=== PATIENT | female | born 1940 | race Caucasian/White ===

== ENCOUNTER 2018-05-31 18:49 | Emergency (ER) | payer OTHER, SELFPAY ==
[2018-05-31 18:57] VITALS: BP 188/83; PULSE 64; RESP 18; TEMP 37.3; O2SAT 97
--- NOTE | 2018-05-31 19:20 | ED.EYEPROB ---
HPI - Eye Problem <SAMI Hathaway - Last Filed: 05/31/18 22:42> General Chief complaint: Eye Problems Stated complaint: SAP IN EYE Time Seen by Provider: 05/31/18 19:20 History of Present Illness HPI Narrative: 78-year-old female here for complaint of redness and irritation to her right eye. She states that she accidentally got some septic from a tree into her right eye. 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 She states that this happened prior to arrival. She said that she washed her eye out at home. She states she has blurry vision to her right eye. She denies any other injuries or concerns at this point. MD chief complaint: eye pain Related Data Home Medications Medication Instructions Recorded Confirmed [CALCIUM] 1,500 mg PO QDAY #0 08/05/17 aspirin 81 mg PO QDAY #0 08/05/17 atorvastatin [Lipitor] 20 mg PO HS #0 08/05/17 cholecalciferol (vitamin D3) 2,000 unit PO QDAY #0 08/05/17 [Vitamin D3] metoprolol succinate 100 mg PO QDAY #0 08/05/17 vit C,W-Qt-mygsi-lutein-zeaxan 1 cap PO BID #0 08/05/17 [PreserVision AREDS 2] Previous Rx's Medication Instructions Recorded oxycodone-acetaminophen [Percocet] 1 tab PO Q6HP PRN #10 tab 08/05/17 erythromycin 0.5 inch EYE-RIGHT QID 7 Days #1 05/31/18 gram Allergies Allergy/AdvReac Type Severity Reaction Status Date / Time codeine Allergy Unknown Verified 05/31/18 19:01 Review of Systems <SAMI Hathaway - Last Filed: 05/31/18 22:42> Constitutional Denies chills, Denies fever(s), Denies lethargy and Denies weakness Eyes Reports blurry vision, Denies eye discharge, Reports irritation, Denies loss of vision and Reports eye pain ENT Ears, Nose, Mouth, and Throat: Denies change in voice, Denies neck pain and Denies sore throat Cardiovascular Denies chest pain, Denies irregular heart rhythm, Denies lightheadedness, Denies palpitations, Denies dyspnea, Denies dyspnea on exertion and Denies orthopnea Respiratory Denies cough, Denies dyspnea, Denies dyspnea on exertion and Denies wheezing Gastrointestinal Gastrointestinal: Denies abdominal pain, Denies change in bowel habits, Denies diarrhea, Denies nausea and Denies vomiting Genitourinary Denies hematuria, Denies flank pain, Denies urinary incontinence and Denies urinary urgency Musculoskeletal Denies neck pain Integumentary/Breasts Denies pruritus, Denies erythema, Denies rash and Denies wounds Neurologic Denies confusion, Denies loss of vision and Denies weakness Psychiatric Denies anxiety, Denies confusion, Denies depression, Denies homicidal ideation and Denies suicidal ideation Endocrine Denies palpitations Hematologic/Lymphatic Denies easy bruising Allergic/Immunologic Denies wheezing Exam <SAMI Hathaway - Last Filed: 05/31/18 22:42> Initial Vital Signs Initial Vital Signs: Vital Signs Temperature 99.1 F 05/31/18 18:57 Pulse Rate 64 05/31/18 18:57 Respiratory Rate 18 05/31/18 18:57 Blood Pressure 188/83 H 05/31/18 18:57 Pulse Oximetry 97 05/31/18 18:57 Const General: cooperative and well developed Nutritional Appearance: well nourished Orientation: alert, awake, oriented x3 and not confused HENID Mouth: oral mucosae normal and moist mucous membranes Eyes Eyelids: eyelids normal Conjunctivae: other (Redness to right conjunctivae and sclerae) Sclera: scleral abnormality (Redness to right scleral and conjunctivae) Cornea: corneas abnormal (Slight fluorescein uptake to anterior right cornea) and fluorescein used Pupils: PERRL Resp Effort & Inspection: normal respiratory effort, able to speak in complete sentences, no respiratory distress and no use of accessory muscles Auscultation: clear to auscultation bilaterally, no rales, no rhonchi and no wheezes Cardio Rate: regular rate Rhythm: regular rhythm Heart Sounds: no click, no gallops, no murmurs and no rubs Pulses: normal peripheral pulses Skin General: no rashes or lesions noted, No jaundice and No petechiae Neuro General: alert, oriented x3, gait normal and no focal motor deficits Speech: speech normal <Morris Castillo DO - Last Filed: 06/01/18 02:03> Initial Vital Signs Initial Vital Signs: Vital Signs Temperature 99.1 F 05/31/18 18:57 Pulse Rate 64 05/31/18 18:57 Respiratory Rate 18 05/31/18 18:57 Blood Pressure 188/83 H 05/31/18 18:57 Pulse Oximetry 97 05/31/18 18:57 Course <SAMI Hathaway - Last Filed: 05/31/18 22:42> Orders Ordered: Discontinued Medications Erythromycin (Erythromycin Ophth Oint) 1 applic EYE-RIGHT NOW ONE Stop: 05/31/18 21:36 Last Admin: 05/31/18 21:55 Dose: 1 applic Ibuprofen (Advil) 400 mg PO NOW ONE Stop: 05/31/18 21:53 Last Admin: 05/31/18 21:54 Dose: 400 mg Proparacaine HCl (Parcaine 0.5% Ophth Keila) 1 drops EYE-RIGHT NOW ONE Stop: 05/31/18 21:42 Last Admin: 05/31/18 21:55 Dose: 1 drop Vital Signs - 8 hr 05/31/18 18:57 05/31/18 20:30 05/31/18 21:43 Temperature 99.1 F Pulse Rate 64 54 L 59 L Respiratory Rate 18 14 17 Blood Pressure 188/83 H Blood Pressure [Left Arm] 153/62 H 174/77 H Pulse Oximetry 97 94 96 <Morris Castillo DO - Last Filed: 06/01/18 02:03> Orders Ordered: Discontinued Medications Erythromycin (Erythromycin Ophth Oint) 1 applic EYE-RIGHT NOW ONE Stop: 05/31/18 21:36 Last Admin: 05/31/18 21:55 Dose: 1 applic Ibuprofen (Advil) 400 mg PO NOW ONE Stop: 05/31/18 21:53 Last Admin: 05/31/18 21:54 Dose: 400 mg Proparacaine HCl (Parcaine 0.5% Ophth Keila) 1 drops EYE-RIGHT NOW ONE Stop: 05/31/18 21:42 Last Admin: 05/31/18 21:55 Dose: 1 drop Vital Signs - 8 hr 05/31/18 18:57 05/31/18 20:30 05/31/18 21:43 Temperature 99.1 F Pulse Rate 64 54 L 59 L Respiratory Rate 18 14 17 Blood Pressure 188/83 H Blood Pressure [Left Arm] 153/62 H 174/77 H Pulse Oximetry 97 94 96 [facility] - Eye Problem <Brodie Martinez, [employer] - Last Filed: 05/31/18 22:42> [facility] Narrative Medical decision making narrative: I was irrigated for approximately 20 min here in the emergency room. She still had some discomfort to her right eye. Fluorescein exam shows some slight uptake to the center of the right cornea. Discussed case with ophthalmology Dr. le whose office will see her tomorrow for re-evaluation. She is placed on erythromycin ointment to prevent infection. Oofq-lok-wxzgnlc Tylenol or Motrin as needed for any discomfort. Patient still has residual blurriness to the right eye. Discussed case with poison Control who concurs with current plan. For any worsening symptoms return to the emergency room. Discharge Plan Departure Patient Disposition: Home, Self-Care Clinical Impression: Irritation of right eye Discharge Date/Time: 05/31/18 22:06 Interventions: ED Discharge Assessment Last Done: 05/31/18 22:05 Instructions: DI for Red Eye Activity Restrictions/Additional Instructions: I was irrigated well today in the emergency room. There is a slight amount of irritation to your right cornea. You have been placed on antibiotic ointment use as directed. Follow up with Ophthalmology tomorrow at their clinic tomorrow at 8 or 9:00 a.m. use [id number] Tylenol or Motrin as needed for any discomfort. Follow up with her primary care provider. Return emergency room for any worsening symptoms. Prescriptions: New erythromycin 5 mg/gram (0.5 %) ointment 0.5 inch EYE-RIGHT QID 7 Days Qty: 1 RF: 0 No Action atorvastatin [Lipitor] 20 MG tablet 20 mg PO HS Qty: 0 RF: 0 aspirin 81 MG tablet,chewable 81 mg PO QDAY Qty: 0 RF: 0 metoprolol succinate 100 MG tablet extended release 24 hr 100 mg PO QDAY Qty: 0 RF: 0 vit C,Y-Vu-rcoip-lutein-zeaxan [PreserVision AREDS 2] 1 EACH capsule 1 cap PO BID Qty: 0 RF: 0 [CALCIUM] 1,500 mg PO QDAY Qty: 0 RF: 0 cholecalciferol (vitamin D3) [Vitamin D3] 2,000 UNIT capsule 2,000 unit PO QDAY Qty: 0 RF: 0 oxycodone-acetaminophen [Percocet] 5 MG/325 MG tablet 1 tab PO Q6HP PRNQty: 10 RF: 0 Referrals: Jaqueline Le MD [Physician] - Sanjuanita Groves MD [Primary Care Provider] - <Morris Castillo DO - Last Filed: 06/01/18 02:03> Cosign ED Attending Martín Attestation: I was immediately available in the department for consultation. Documentation has been reviewed. I agree with assessment and plan.
[2018-05-31 20:30] VITALS: BP 153/62; PULSE 54; RESP 14; O2SAT 94
[2018-05-31 21:43] VITALS: BP 174/77; PULSE 59; RESP 17; O2SAT 96
[2018-05-31] MEDS: IBUPROFEN 400 MG TABLET PO (21:54)
[2018-05-31] MEDS: ERYTHROMYCIN OPHTH 1 GM OINT 1 APPLIC EYE-RIGHT (21:55)
[2018-05-31] MEDS: PROPARACAINE 0.5% OPHTH SOL 1 DROPS EYE-RIGHT (21:55)
== END 2018-05-31 22:06 | disposition home or self-care (01) ==
PROVIDERS: Emergency Provider Nurse Practitioner Family; Family Provider Internal Medicine; PCP Internal Medicine
DX: H57.8 Other specified disorders of eye and adnexa (principal)
CPT/HCPCS: 99283

== ENCOUNTER → 2018-10-21 08:54 | Outpatient (CLI) | payer OTHER, SELFPAY ==
[2018-10-21 09:25] LABS: Alanine Aminotransferase 23 IU/L (9-52); Aspartate Aminotransferase 14 IU/L (14-36); Blood Urea Nitrogen 15 mg/dL (7-17); Calcium 8.8 mg/dL (8.4-10.2); Carbon Dioxide 28 mmol/L (22-32); Chloride 105 mmol/L (98-107); Cholesterol 128 mg/dL (140-199); Estimated Glomerular Filt Rate > 60.0 mL/min (>60); Glucose 94 mg/dL (80-110); HDL Cholesterol 44 mg/dL (40-60); HEMOLYSIS < 15 (0-50); LDL Cholesterol Calculated 68 mg/dL (<100); Potassium 4.2 mmol/L (3.4-5.1); Sodium 144 mmol/L (137-145); Triglycerides 82 mg/dL (35-150)
== END ==
PROVIDERS: Family Provider Internal Medicine; PCP Internal Medicine; Visit Provider Internal Medicine
DX: I10 Essential (primary) hypertension (principal); E78.2 Mixed hyperlipidemia
CPT/HCPCS: 36415; 80048; 80061; 84450; 84460

== ENCOUNTER → 2019-01-11 15:19 | Outpatient (CLI) | payer OTHER, SELFPAY ==
--- NOTE | 2019-01-11 | DI.MG.S_ITS ---
BILATERAL DIGITAL SCREENING MAMMOGRAM 3D/2D WITH CAD POST LUMPECTOMY: 01/11/2019 CLINICAL: Routine screening. Personal history of left breast cancer. Comparison is made to exams dated: 09/11/2015 mammogram, 09/10/2014 mammogram, and 09/07/2013 mammogram - [facility]. There are scattered fibroglandular elements in both breasts. Current study was also evaluated with a Computer Aided Detection (CAD) system. There are benign post operative findings in the left breast. No significant masses, calcifications, or other findings are seen in either breast. There has been no significant interval change. IMPRESSION: There is no mammographic evidence of malignancy. A 1 year screening mammogram is recommended. This exam was interpreted at Station ID: [id number]. NOTE: For mammograms, a report in lay terms will be sent to the patient. Approximately 15% of breast malignancies will not be visualized mammographically. In the management of a palpable breast mass, a negative mammogram must not discourage biopsy of a clinically suspicious lesion. Electronically Signed By: Bhavani zimmer/winsome:01/12/2019 12:55:29 letter sent: Normal Exam ACR BI-RADS Category 2: Benign Finding(s) 3342F
== END ==
PROVIDERS: PCP Internal Medicine; Visit Provider Internal Medicine
DX: Z12.31 Encounter for screening mammogram for malignant neoplasm of breast (principal); Z85.3 Personal history of malignant neoplasm of breast
CPT/HCPCS: 77063; 77067

== ENCOUNTER → 2019-08-06 08:40 | Outpatient (CLI) | payer OTHER, SELFPAY ==
[2019-08-06 11:17] LABS: Aspartate Aminotransferase 18 IU/L (14-36); Blood Urea Nitrogen 16 mg/dL (7-17); Carbon Dioxide 26 mmol/L (22-32); Chloride 105 mmol/L (98-107); Cholesterol 137 mg/dL (140-199); Estimated Glomerular Filt Rate > 60.0 mL/min (>60); Glucose 96 mg/dL (80-110); HDL Cholesterol 47 mg/dL (40-60); HEMOLYSIS < 15 (0-50); LDL Cholesterol Calculated 78 mg/dL (<100); Potassium 3.9 mmol/L (3.4-5.1); Sodium 139 mmol/L (137-145); Triglycerides 62 mg/dL (35-150)
[2019-08-06 11:21] LABS: Alanine Aminotransferase < 6 IU/L (9-52)
== END ==
PROVIDERS: PCP Internal Medicine; Visit Provider Internal Medicine
DX: I10 Essential (primary) hypertension (principal); E78.2 Mixed hyperlipidemia
CPT/HCPCS: 36415; 80048; 80061; 84450; 84460

== ENCOUNTER → 2019-12-17 13:46 | Outpatient (CLI) | payer OTHER, SELFPAY | PROVIDERS: PCP Internal Medicine; Visit Provider Internal Medicine | DX: M85.88 Other specified disorders of bone density and structure, other site (principal); Z78.0 Asymptomatic menopausal state; Z85.3 Personal history of malignant neoplasm of breast; Z87.891 Personal history of nicotine dependence | CPT/HCPCS: 77080 ==

== ENCOUNTER → 2020-03-12 14:59 | Outpatient (CLI) | payer OTHER, SELFPAY ==
--- NOTE | 2020-03-12 | DI.ECHO.S_ITS ---
[facility] +---------+ : : [address] [place] : : : : [id number] : : : : Phone: [phone]+ Echocardiogram Report + + :Name: EDDIE ORTEZ Study Date: 03/12/2020 Height: 69 in : :[facility] Weight: 219 lb : : Gender: Female BSA: 2.1 m2 : :: 1940 Age: 79 yrs BP: 150/86 mmHg: :Reason For Study: Hypoxemia : :Ordering Physician: Jalen GrovesPerformed By: Noreen Aquino : :Referring: JALEN GROVES : + + Interpretation Summary The left ventricle is normal in size. The left ventricular ejection fraction is normal. Left ventricular wall motion is normal. Diastolic parameters suggest a relaxation abnormality of the left ventricle, consistent with probable normal filling pressures. The right ventricle is normal in size and function. The right ventricular systolic pressure is estimated to be at least 34 mmHg based on an estimated right atrial pressure of 3 mm Hg. No hemodynamically significant valvular abnormalities. There is no Doppler evidence for an interatrial shunt. -If clinically suspect a qbizp-uz-[id number] shunt, please obtain a limited echo with bubble study. Procedure: The study quality was technically good. A two-dimensional transthoracic echocardiogram with color flow and Doppler was performed. There is no prior echocardiogram noted for this patient. The patient was in normal sinus rhythm during the exam. The patient had occasional PVCs during the exam. Left Ventricle: The left ventricle is normal in size. Left ventricular wall thickness is mildly increased. The ejection fraction is estimated to be 60- 65%. The left ventricular ejection fraction is normal. Left ventricular wall motion is normal. Diastolic parameters suggest a relaxation abnormality of the left ventricle, consistent with probable normal filling pressures. Right Ventricle: The right ventricle is normal in size and function. Atria: The left atrium is mildly dilated. Right atrial size is normal. There is no Doppler evidence for an interatrial shunt. Mitral Valve: The mitral valve is normal in structure and function. There is mild mitral regurgitation. Aortic Valve: The aortic valve is trileaflet. The aortic valve opens well. There is no aortic valve stenosis. No aortic regurgitation is present. Tricuspid Valve: The tricuspid valve is normal in structure and function. There is mild tricuspid regurgitation. The right ventricular systolic pressure is estimated to be at least 34 mmHg based on an estimated right atrial pressure of 3 mm Hg. Pulmonic Valve: The pulmonic valve is normal in structure and function. There is no pulmonic valvular regurgitation. Great Vessels: The aortic root is normal size. The ascending aorta is at the upper limits of normal in size. The IVC is of normal diameter and collapses greater than 50% with a sniff. This suggests a low right atrial pressure of 3 mm Hg. Pericardium/ Pleura There is no pericardial effusion. There is no pleural effusion. MMode/2D Measurements & Calculations LVIDd: 5.0 cm LVOT diam: 2.0 cm LVIDs: 3.2 cm Ao root diam: 3.7 cm FS: 36.6 % asc Aorta Diam: 3.4 cm EPSS: 0.87 cm Ao Arch Diam (Prox Trans): 2.9 cm IVSd: 0.99 cm LVPWd: 1.1 cm LV manrique. diameter/BSA (cm/m^2): 2.3 LV sys. diameter/BSA (cm/m^2): 1.5 LA A2 area: 23.7 cm2 RA long axis: 5.2 cm LA A4 area: 22.6 cm2 RA area: 17.6 cm2 LA length (vol): 5.8 cm RA vol: 50.7 ml LA vol: 77.9 ml RA : 23.6 ml/m2 LA vol index: 36.3 ml/m2 RVD1 (basal): 3.8 cm TAPSE: 2.5 cm Doppler Measurements & Calculations Ao V2 max: 144.2 cm/sec LVOT Max Romel: 103.2 cm/sec Ao V2 mean: 93.9 cm/sec LV V1 max P.3 mmHg Ao max P.3 mmHg LV V1 VTI: 24.0 cm Ao mean P.0 mmHg ANTOINETTE(I,D): 2.2 cm2 Ao V2 VTI: 33.2 cm ANTOINETTE(V,D): 2.1 cm2 sev ratio: 0.72 ANTOINETTE indexed to BSA (cm^2/m^2): 1.0 Med Peak E' Romel: 4.4 cm/sec TR max romel: 276.3 cm/sec Lat Peak E' Romel: 6.7 cm/sec TR max P.6 mmHg MVA(VTI): 3.8 cm2 PA V2 max: 85.5 cm/sec PA V2 mean: 58.2 cm/sec PA mean P.6 mmHg MV V2 mean: 44.4 cm/sec SV(LVOT): 72.0 ml MV mean P.92 mmHg MV V2 VTI: 19.1 cm Electronically signed by: Fabian Calvert M.D. on Reading Physician:03/12/2020 06:24 PM
[2020-03-12 16:34] LABS: Fractionated Inspired Oxygen 21; HCO3 ABG 23 mmol/L (22-26); Oxygen Saturation ABG 94 % (95-100); PCO2 ABG 37.8 mmHg (35-45); PO2 ABG 71 mmHg (80-100); TCO2 ABG 24 mmol/L (21-31)
[2020-03-12 20:07] LABS: BUN Creatinine Ratio 30.4 (6-22); Blood Urea Nitrogen 17 mg/dL (7-17); Calcium 9.4 mg/dL (8.4-10.2); Carbon Dioxide 26 mmol/L (22-32); Chloride 105 mmol/L (98-107); Estimated Glomerular Filt Rate > 60.0 mL/min (>60); Glucose 86 mg/dL (80-110); HEMOLYSIS < 15 (0-50); Potassium 3.9 mmol/L (3.4-5.1); Sodium 139 mmol/L (137-145)
[2020-03-13 17:57] LABS: Ferritin 191 ng/mL (11-264)
== END ==
PROVIDERS: PCP Internal Medicine; Referring Provider Internal Medicine; Visit Provider Internal Medicine
DX: I08.1 Rheumatic disorders of both mitral and tricuspid valves (principal); R09.02 Hypoxemia
CPT/HCPCS: 36415; 36600; 80048; 82728; 82805; 93306

== ENCOUNTER → 2020-03-13 15:22 | Outpatient (CLI) | payer OTHER, SELFPAY ==
--- NOTE | 2020-03-13 | DI.RAD.S_ITS ---
PROCEDURE: XR CHEST 2V INDICATIONS: Hypoxia TECHNIQUE: 2 views of the chest were acquired. COMPARISON: [facility], , CHEST 2 VIEW, 05/04/2016, 12:36. FINDINGS: Surgical changes and devices: Surgical clips in the left breast and axilla. Lungs and pleura: Interstitial prominence. Lungs are otherwise clear. No pleural effusions or pneumothorax. Mediastinum: Mediastinal contours are normal. Heart size is normal. Bones and chest wall: No suspicious bony abnormalities. Soft tissues appear unremarkable. IMPRESSION: 1. Bilateral interstitial prominence. 2. No acute cardiopulmonary disease. Dictated by: Lolis Monae M.D. on 03/13/2020 at 16:07 Approved by: Lolis Monae M.D. on 03/13/2020 at 16:08
== END ==
PROVIDERS: PCP Internal Medicine; Referring Provider Internal Medicine; Visit Provider Internal Medicine
DX: R09.02 Hypoxemia (principal)
CPT/HCPCS: 71046

== ENCOUNTER → 2020-07-16 18:04 | Outpatient (ROUT) | payer OTHER, SELFPAY ==
[2020-07-16 18:53] LABS: Alanine Aminotransferase 12 IU/L (<35); Albumin 4.5 g/dL (3.5-5.0); Albumin Globulin Ratio 1.6 (1.0-2.8); Alkaline Phosphatase 67 U/L (38-126); Aspartate Aminotransferase 23 IU/L (14-36); BUN Creatinine Ratio 32.1 (6-22); Bilirubin Total 0.9 mg/dL (0.2-1.3); Blood Urea Nitrogen 18 mg/dL (7-17); Calcium 9.2 mg/dL (8.4-10.2); Carbon Dioxide 25 mmol/L (22-32); Chloride 104 mmol/L (98-107); Cholesterol 144 mg/dL (140-199); Estimated Glomerular Filt Rate > 60.0 mL/min (>60); Globulin 2.9 g/dL (1.7-4.1); Glucose 89 mg/dL (80-110); HDL Cholesterol 57 mg/dL (40-60); HEMOLYSIS < 15 (0-50); LDL Cholesterol Calculated 70 mg/dL (<100); Potassium 3.6 mmol/L (3.4-5.1); Sodium 139 mmol/L (137-145); Total Protein 7.4 g/dL (6.3-8.2); Triglycerides 84 mg/dL (35-150)
[2020-07-16 19:24] LABS: Thyroid Stimulating Hormone 2.34 uIU/mL (0.47-4.68)
[2020-07-16 19:42] LABS: Vitamin B12 397 pg/mL (239-931)
[2020-07-18 04:39] LABS: RPR Screen Non Reactive (Non Reactive)
== END ==
PROVIDERS: PCP Internal Medicine; Visit Provider Internal Medicine
DX: R41.3 Other amnesia (principal); E78.2 Mixed hyperlipidemia
CPT/HCPCS: 80053; 80061; 82607; 84443; 86592

== ENCOUNTER → 2020-11-03 15:21 | Outpatient (CLI) | payer OTHER, SELFPAY ==
[2020-11-03 16:51] LABS: COVID19 -Nasal RAPID Negative (Negative)
== END ==
PROVIDERS: PCP Internal Medicine; Visit Provider Physician Assistant
DX: Z01.812 Encounter for preprocedural laboratory examination (principal); Z20.828 Contact with and (suspected) exposure to other viral communicable diseases
CPT/HCPCS: 87635; C9803

== ENCOUNTER → 2020-11-06 15:24 | Outpatient (CLI) | payer OTHER, SELFPAY ==
--- NOTE | 2020-11-06 18:05 | DI.NM.S_ITS ---
DATE OF SERVICE: 11/06/2020 PROCEDURE PERFORMED: Non-imaging exercise treadmill stress test. ORDERING PROVIDER: Dr. Sanjuanita Groves. INDICATIONS: The patient is a 80-year-old female with COPD, tachy-lee syndrome, and PVCs. FINDINGS: 1. The patient was able to exercise for 3 minutes 25 seconds on a standard Elmer protocol suggesting moderate-severely reduced exercise capacity with an YAIMA of +30%, achieving 4.6 METs. 2. She had a normal heart rate response to exercise with a resting heart rate of 79 BPM, increasing to a maximum of 145 BPM (103% of her predicted maximum). She had a borderline hypertensive blood pressure response with a resting blood pressure of 140/80, increasing to a maximum of 180/100. 3. She had no chest discomfort but had limiting dyspnea with documented oxygen saturation of 80% at peak exercise. 4. Her resting ECG shows sinus rhythm with an LVH and strain pattern with mild ST-segment abnormalities and occasional PVCs. With exercise, the ST-segment abnormality becomes somewhat accentuated but upsloping and remains nonspecific. She had occasional PVCs, rarely in couplets, that became more frequent in recovery but no other complex ventricular ectopy but a brief 8- beat run of SVT at 130 bpm for eight beats in recovery. IMPRESSION: 1. Borderline abnormal exercise treadmill study for ischemia with mild accentuation of baseline ST-segment abnormalities that could reflect ischemia, but are nonspecific. 2. Significantly reduced exercise capacity without angina, but limiting dyspnea and documented exertional hypoxemia. 3. PVCs at rest with mild accentuation with exercise and brief SVT in the recovery period but no complex ectopy seen. Anita Carey - LUCILA/brennan/shane doc#: [id number]/job#: [id number] dd: 11/06/2020 17:19:00 dt: 11/06/2020 17:33:00 DICTATING MD/COPIES TO: Stu Ojeda MD; Sanjuanita Groves MD COPIES MNE: SARAH BETH;
== END ==
PROVIDERS: PCP Internal Medicine; Referring Provider Internal Medicine; Visit Provider Internal Medicine
DX: I49.5 Sick sinus syndrome (principal); I49.3 Ventricular premature depolarization; I10 Essential (primary) hypertension; J44.9 Chronic obstructive pulmonary disease, unspecified
CPT/HCPCS: 93017

== ENCOUNTER → 2021-01-07 16:54 | Outpatient (CLI) | payer OTHER, SELFPAY ==
--- NOTE | 2021-01-07 17:09 | DI.MG.S_ITS ---
Date: 01/07/2021 17:09 At the request of: JALEN TAN Procedure: MM screening mammo BI BILATERAL DIGITAL SCREENING MAMMOGRAM 3D/2D WITH CAD POST LUMPECTOMY: 01/07/2021 CLINICAL: Routine screening. Breast cancer. Comparison is made to exams dated: 01/11/2019 mammogram, 09/11/2015 mammogram, and 09/10/2014 mammogram - [facility]. There are scattered fibroglandular elements in both breasts. Current study was also evaluated with a Computer Aided Detection (CAD) system. There are benign post operative findings in the left breast. No significant masses, calcifications, or other findings are seen in either breast. There has been no significant interval change. IMPRESSION: BENIGN There is no mammographic evidence of malignancy. A 1 year screening mammogram is recommended. This exam was interpreted at Station ID: [id number]. NOTE: For mammograms, a report in lay terms will be sent to the patient. Approximately 15% of breast malignancies will not be visualized mammographically. In the management of a palpable breast mass, a negative mammogram must not discourage biopsy of a clinically suspicious lesion. Electronically Signed By: Keshav hewitt/winsome:01/08/2021 09:08:26 letter sent: Normal Exam ACR BI-RADS Category 2: Benign Finding(s) 3342F
== END ==
PROVIDERS: PCP Internal Medicine; Referring Provider Internal Medicine; Visit Provider Internal Medicine
DX: Z12.31 Encounter for screening mammogram for malignant neoplasm of breast (principal); Z85.3 Personal history of malignant neoplasm of breast
CPT/HCPCS: 77063; 77067

== ENCOUNTER → 2021-03-31 09:54 | Outpatient (CLI) | payer OTHER, SELFPAY ==
[2021-03-31 10:53] LABS: Alanine Aminotransferase 11 IU/L (<35); Albumin 4.4 g/dL (3.5-5.0); Albumin Globulin Ratio 1.6 (1.0-2.8); Alkaline Phosphatase 65 U/L (38-126); Aspartate Aminotransferase 20 IU/L (14-36); BUN Creatinine Ratio 24.1 (6-22); Bilirubin Total 0.6 mg/dL (0.2-1.3); Blood Urea Nitrogen 14 mg/dL (7-17); Calcium 9.3 mg/dL (8.4-10.2); Carbon Dioxide 26 mmol/L (22-32); Chloride 107 mmol/L (98-107); Cholesterol 138 mg/dL (140-199); Estimated Glomerular Filt Rate > 60.0 mL/min (>60); Globulin 2.8 g/dL (1.7-4.1); Glucose 99 mg/dL (80-110); HDL Cholesterol 59 mg/dL (40-60); HEMOLYSIS < 15 (0-50); LDL Cholesterol Calculated 62 mg/dL (<100); Potassium 4.3 mmol/L (3.4-5.1); Sodium 140 mmol/L (137-145); Total Protein 7.2 g/dL (6.3-8.2); Triglycerides 86 mg/dL (35-150)
[2021-03-31 11:39] LABS: Vitamin B12 728 pg/mL (239-931)
== END ==
PROVIDERS: PCP Internal Medicine; Referring Provider Internal Medicine; Visit Provider Internal Medicine
DX: I10 Essential (primary) hypertension (principal); E78.2 Mixed hyperlipidemia; E53.8 Deficiency of other specified B group vitamins
CPT/HCPCS: 36415; 80053; 80061; 82607

== ENCOUNTER → 2022-09-15 | Outpatient (CLI) | payer OTHER, SELFPAY ==
--- NOTE | 2022-09-15 12:59 | DI.MG.S_ITS ---
BILATERAL DIGITAL SCREENING MAMMOGRAM 3D/2D WITH CAD: 09/15/2022 CLINICAL: Routine screening. Personal history of left breast cancer. Comparison is made to exams dated: 01/07/2021 mammogram, 01/11/2019 mammogram, 09/11/2015 mammogram, and 09/10/2014 mammogram - [facility]. There are scattered areas of fibroglandular density in both breasts (category b / 25%-50% glandular tissue). Current study was also evaluated with a Computer Aided Detection (CAD) system. There is a benign calcification in the left breast. There also are benign post operative findings in the left breast. No significant masses, calcifications, or other findings are seen in either breast. There has been no significant interval change. IMPRESSION: BENIGN There is no mammographic evidence of malignancy. A 1 year screening mammogram is recommended. This exam was interpreted at Station ID: [id number]. NOTE: For mammograms, a report in lay terms will be sent to the patient. Approximately 15% of breast malignancies will not be visualized mammographically. In the management of a palpable breast mass, a negative mammogram must not discourage biopsy of a clinically suspicious lesion. Electronically Signed By: Zhou grady/winsome:09/27/2022 15:44:29 letter sent: Normal Exam ACR BI-RADS Category 2: Benign Finding(s) 3342F
== END ==
PROVIDERS: PCP Internal Medicine; Referring Provider Internal Medicine; Visit Provider Internal Medicine
DX: Z12.31 Encounter for screening mammogram for malignant neoplasm of breast (principal); Z85.3 Personal history of malignant neoplasm of breast
CPT/HCPCS: 77063; 77067

== ENCOUNTER → 2024-10-05 13:11 | Outpatient (CLI) | payer OTHER, SELFPAY ==
--- NOTE | 2024-10-05 13:12 | DI.MG.S_ITS ---
BILATERAL DIGITAL SCREENING MAMMOGRAM 3D/2D WITH CAD: 10/05/2024 CLINICAL: Routine screening. Personal history of left breast cancer. Comparison is made to exams dated: 09/15/2022 mammogram, 01/07/2021 mammogram, and 01/11/2019 mammogram - [facility]. There are scattered areas of fibroglandular density (category b / 25%-50% glandular tissue). Current study was also evaluated with a Computer Aided Detection (CAD) system. There are benign post operative findings in the left breast. No significant masses, calcifications, or other findings are seen in either breast. There has been no significant interval change. IMPRESSION: BENIGN There is no mammographic evidence of malignancy. A 1 year screening mammogram is recommended. This exam was interpreted at Station ID: [id number]. NOTE: For mammograms, a report in lay terms will be sent to the patient. Approximately 15% of breast malignancies will not be visualized mammographically. In the management of a palpable breast mass, a negative mammogram must not discourage biopsy of a clinically suspicious lesion. Electronically Signed By: Mimi Mi M.D., Ph.D. fitz/winsome:10/06/2024 16:32:06 letter sent: Normal Exam ACR BI-RADS Category 2: Benign
== END ==
PROVIDERS: PCP Internal Medicine; Referring Provider Internal Medicine; Visit Provider Internal Medicine
DX: Z12.31 Encounter for screening mammogram for malignant neoplasm of breast (principal); Z85.3 Personal history of malignant neoplasm of breast
CPT/HCPCS: 77063; 77067